=== PATIENT | male | born 1935 | race African-American/Black ===

== ENCOUNTER 2020-03-27 07:58 | Emergency (ER) | payer MEDICARE, OTHER ==
[~2020-03-27] VITALS: Ht 190.5 cm; Wt 89.8 kg
[~2020-03-27 07:58] MED LIST: UNOBMED
[2020-03-27 08:00] VITALS: BP 141/77
--- NOTE | 2020-03-27 08:10 | NUR ---
ED Nurse Note: pt was brought in by ambulance from home d/t edema on bilateral lower extremities. Pt is AOx4, calm and cooperative. VSS, on RA, afebrile on triage, denies any chest pain nor any discomfort as of now. Placed on bed and gown; hooked to monitoring engineer. Safety measures in placed. Will continue to monitor.
--- NOTE | 2020-03-27 08:15 | NUR ---
ED Nurse Note: ERMD at bedside.
--- NOTE | 2020-03-27 08:29 | Emergency Room Report ---
History of Present Illness General Chief Complaint: Edema Source: Patient Present Illness HPI This patient has a history of high cholesterol. He states that for very long time he has had difficulty breathing with walking. He states that he will go a few steps and has to stop and rest and take a deep breath. He states that he also noticed that he has had some leg swelling. He is unsure when this started. He denies chest pain. He denies cough or congestion. He denies fever or chills. Denies nausea or vomiting. He has no other complaints. Allergies: Coded Allergies: No Known Allergies (Unverified , 02/12/19) COVID-19 Screening Contact w/high risk pt: No Recent Travel to affected area: No Experienced COVID-19 symptoms?: No COVID-19 Testing performed YIELD IMPROVEMENT ENGINEER: No Patient History Past Medical History: see triage record, other - HLP Social History: Denies: smoking, alcohol use, drug use Reviewed Nursing Documentation: PMH: Agreed; PSxH: Agreed Review of Systems All Other Systems: negative except mentioned in HPI Physical Exam Vital Signs Date Time Temp Pulse Resp B/P (MAP) Pulse Ox O2 Delivery O2 Flow Rate FiO2 03/27/20 07:52 98.1 72 18 141/77 (98) 99 Room Air Sp02 EP Interpretation: reviewed, normal General Appearance: no apparent distress, alert, GCS 15, non-toxic Head: normocephalic, atraumatic Eyes: bilateral eye normal inspection, bilateral eye PERRL ENT: hearing grossly normal, normal pharynx, no angioedema, normal voice Neck: full range of motion, supple/symm/no masses Respiratory: chest non-tender, normal breath sounds, no respiratory distress, no retraction, no accessory muscle use, speaking full sentences Cardiovascular #1: regular rate, rhythm, no edema, edema - 2+pitting edema BLE Gastrointestinal: normal bowel sounds, non tender, soft, non-distended, no guarding, no rebound Rectal: deferred Musculoskeletal: back normal, normal range of motion, gait/station normal, non- tender, swelling - 2+pitting edema BLE Neurologic: alert, motor strength/tone normal, oriented x3, sensory intact, responsive, speech normal Psychiatric: judgement/insight normal, memory normal, mood/affect normal, no suicidal/homicidal ideation Skin: no rash, normal color Medical Decision Making Diagnostic Impression: Primary Impression: Symptomatic bradycardia Additional Impression: Bifascicular block ER Course This patient appears to have symptomatic bradycardia. He is also found to have a bifascicular block. I am concerned that when this patient exerts himself, such as walking, he could be going into complete heart block or another pathologic bradycardia arrhythmia. The patient is not on any rate blocking medications. I suspect this is related to his own cardiac electrical system. There is no evidence of left-sided congestive heart failure on chest x-ray. However, he could be having right-sided heart failure given the edema in both of his legs. This could also possibly be simply peripheral edema. Regardless, the patient is bradycardic with a bifascicular block and is high risk to go into third-degree heart block. The patient does have a chest x-ray that appears hyperinflated. This could be undiagnosed COPD. The patient denies any history of tobacco use. The patient will be admitted to telemetry for further evaluation and treatment by cardiology. Laboratory Tests Test 03/27/20 08:15 White Blood Count 4.9 K/UL (4.8-10.8) Red Blood Count 3.96 M/UL (4.70-6.10) L Hemoglobin 11.6 G/DL (14.2-18.0) L Hematocrit 36.0 % (42.0-52.0) L Mean Corpuscular Volume 91 FL (80-99) Mean Corpuscular Hemoglobin 29.3 PG (27.0-31.0) Mean Corpuscular Hemoglobin Concent 32.3 G/DL (32.0-36.0) Red Cell Distribution Width 15.3 % (11.6-14.8) H Platelet Count 181 K/UL (150-450) Mean Platelet Volume 7.1 FL (6.5-10.1) Neutrophils (%) (Auto) 62.5 % (45.0-75.0) Lymphocytes (%) (Auto) 23.2 % (20.0-45.0) Monocytes (%) (Auto) 11.6 % (1.0-10.0) H Eosinophils (%) (Auto) 1.0 % (0.0-3.0) Basophils (%) (Auto) 1.7 % (0.0-2.0) Sodium Level 142 MMOL/L (136-145) Potassium Level 3.5 MMOL/L (3.5-5.1) Chloride Level 105 MMOL/L (98-107) Carbon Dioxide Level 31 MMOL/L (21-32) Anion Gap 6 mmol/L (5-15) Blood Urea Nitrogen 21 mg/dL (7-18) H Creatinine 0.8 MG/DL (0.55-1.30) Estimated Glomerular Filtration Rate > 60 mL/min (>60) Glucose Level 88 MG/DL (74-106) Calcium Level 8.6 MG/DL (8.5-10.1) Total Bilirubin 0.8 MG/DL (0.2-1.0) Aspartate Amino Transferase (AST) 30 U/L (15-37) Alanine Aminotransferase (ALT) 25 U/L (12-78) Alkaline Phosphatase 60 U/L (46-116) Troponin I 0.001 ng/mL (0.000-0.056) Pro-B-Type Natriuretic Peptide 121 pg/mL (0-125) Total Protein 7.0 G/DL (6.4-8.2) Albumin 3.4 G/DL (3.4-5.0) Globulin 3.6 g/dL Albumin/Globulin Ratio 0.9 (1.0-2.7) L EKG Diagnostic Results Rate: other - S.jericho w/ sinus arrhythmia and 1st degree AV block. R.BBB, LAFB , Q-wave V1 Rhythm: other - S.Bradycardia ST Segments: no acute changes Rhythm Strip Diag. Results EP Interpretation: yes Rate: 50's Rhythm: no PVC's, no ectopy, other - S.Bradycardia Chest X-Ray Diagnostic Results Chest X-Ray Diagnostic Results : Chest X-Ray Ordered: Yes # of Views/Limited/Complete: 1 View Indication: Shortness of Breath EP Interpretation: Yes Interpretation: no consolidation, no effusion, no pneumothorax, no acute cardiopulmonary disease, other - Hyper-inflated Last Vital Signs Date Time Temp Pulse Resp B/P (MAP) Pulse Ox O2 Delivery O2 Flow Rate FiO2 03/27/20 08:00 98.1 18 141/77 99 Room Air 03/27/20 08:00 72 Disposition: ADMITTED INPATIENT Condition: Serious Apolonia Pace DO Mar 27, 2020 08:29
--- NOTE | 2020-03-27 08:29 | NUR ---
ED Nurse Note: X-ray tech at bedside.
[2020-03-27 08:35] LABS: BASOPHILS % (AUTO) 1.7 % (0.0-2.0); HEMOGLOBIN 11.6 G/DL (14.2-18.0); LYMPHOCYTES % (AUTO) 23.2 % (20.0-45.0); MEAN CORPUSCULAR VOLUME 91 FL (80-99); MONOCYTES % (AUTO) 11.6 % (1.0-10.0); NEUTROPHILS % (AUTO) 62.5 % (45.0-75.0); PLATELET COUNT 181 K/UL (150-450); RED BLOOD COUNT 3.96 M/UL (4.70-6.10); RED CELL DISTRIBUTION WIDTH 15.3 % (11.6-14.8); WHITE BLOOD COUNT 4.9 K/UL (4.8-10.8)
[2020-03-27 08:44] LABS: ANION GAP 6 mmol/L (5-15); BLOOD UREA NITROGEN 21 mg/dL (7-18); CALCIUM 8.6 MG/DL (8.5-10.1); CARBON DIOXIDE 31 MMOL/L (21-32); CHLORIDE 105 MMOL/L (98-107); CREATININE 0.8 MG/DL (0.55-1.30); POTASSIUM 3.5 MMOL/L (3.5-5.1); SODIUM 142 MMOL/L (136-145)
[2020-03-27 08:55] LABS: ALANINE AMINOTRANSFERASE 25 U/L (12-78); ALBUMIN 3.4 G/DL (3.4-5.0); ALBUMIN/GLOBULIN RATIO 0.9 (1.0-2.7); ALKALINE PHOSPHATASE 60 U/L (46-116); ASPARTATE AMINO TRANSFERASE 30 U/L (15-37); BILIRUBIN,TOTAL 0.8 MG/DL (0.2-1.0)
--- NOTE | 2020-03-27 09:00 | NUR ---
ED Nurse Note: covid swabs collected, sent to labs.
--- NOTE | 2020-03-27 09:18 | Diagnostic Imaging Report ---
Procedure: XRAY Chest 1v Reason for study: Shortness of breath. Comparison films: 02/12/2019. FINDINGS: A single one view chest is obtained. Vascularity is normal. There is mild cardiomegaly unchanged. Cardiac and mediastinal silhouette are within normal limits. CP angles are sharp. The bony thorax appear unremarkable. IMPRESSION: Mild cardiomegaly. No acute alveolar disease.
[2020-03-27 09:56] VITALS: BP 136/68
--- NOTE | 2020-03-27 10:25 | NUR ---
ED Nurse Note: LEAD AUDITOR AT THE BEDSIDE
[2020-03-27 11:00] VITALS: BP 143/73
--- NOTE | 2020-03-27 11:22 | Diagnostic Imaging Report ---
EXAM: ULTRASOUND Venous Duplex Lower Ext Uni CLINICAL HISTORY: Leg pain and edema. COMPARISON: None TECHNIQUE: Doppler examination include grayscale images obtained with and without compression, and color and spectral doppler analysis. FINDINGS: Doppler examination shows normal spontaneity, phasicity, compressibility in the right lower extremity. There is no thrombus identified by grayscale. Normal color and spectral flow is identified. There is no evidence of valvular incompetency or insufficiency. Some superficial soft tissue edema noted in the right calf. There is a small fluid collection in the lateral aspect of the right knee. It is estimated at 2.1 x 0.8 cm. IMPRESSION: NO EVIDENCE OF DVT. SMALL FLUID COLLECTION AND SOFT TISSUE EDEMA LATERAL ASPECT OF THE RIGHT KNEE AND CALF.
[2020-03-27 13:06] VITALS: BP 135/72
--- NOTE | 2020-03-27 13:31 | NUR ---
ED Nurse Note: Noted pt complaining of pain on affected site. ERMD aware.
[2020-03-27] MEDS ORDERED: Ketorolac 30mg Inj IV ONE (13:45)
--- NOTE | 2020-03-27 15:04 | NUR ---
ED Nurse Note: Report given to JULIANA Nava from [facility] for Transfer of care.
[2020-03-27 15:05] VITALS: BP 153/70
[2020-03-27 15:52] VITALS: BP 153/70
--- NOTE | 2020-03-27 15:52 | NUR ---
TRANSFER TO [facility] ER: Patient transferred to [facility] as ordered, per Dr. Haque. Report given to JULIANA Nava. All beliongings sent with pt. Family and or S/O informed of transfer. Pt was transferred on stable condition.
== END 2020-03-27 15:52 | disposition other institution (70) ==
LOC: EDBD 07:58 → EMR 08:15
DX: R00.1 Bradycardia, unspecified (principal); I45.2 Bifascicular block; E78.00 Pure hypercholesterolemia, unspecified; E78.5 Hyperlipidemia, unspecified; I45.10 Unspecified right bundle-branch block; I44.0 Atrioventricular block, first degree; I49.9 Cardiac arrhythmia, unspecified
CPT/HCPCS: 36415; 71045; 80053; 83880; 84484; 85025; 93005; 93971; 96374; 99285; J1885; U0002